=== PATIENT | female | born 1935 | race Caucasian/White ===

== ENCOUNTER 2020-06-22 13:39 | Emergency (ER) | payer BC, OTHER ==
[~2020-06-22] VITALS: Ht 162.6 cm; Wt 56.7 kg
[~2020-06-22 13:39] MED LIST: CAR3125T; CLOP75TA28; FURO1TAB31; GABA300C; GLIP5TAB12 PO; INSUPOW; LISI-646; SIMV-13; SITA100T7; WARF5TAB PO
[2020-06-22 15:28] VITALS: BP 134/77
== END 2020-06-22 16:18 | disposition home or self-care (01) ==
LOC: ER 13:39
DX: R07.81 Pleurodynia (principal); E11.9 Type 2 diabetes mellitus without complications; E78.5 Hyperlipidemia, unspecified; I10 Essential (primary) hypertension; Z90.49 Acquired absence of other specified parts of digestive tract; Z90.710 Acquired absence of both cervix and uterus; Z98.61 Coronary angioplasty status
CPT/HCPCS: 71101; 93005

== ENCOUNTER 2021-04-08 09:47 | Emergency (ER) | payer BC, OTHER ==
[~2021-04-08] VITALS: Ht 157.5 cm; Wt 59.0 kg
[~2021-04-08 09:47] MED LIST changes: -LISI-646; +LISI20TA28
[2021-04-08 10:44] LABS: Basophils # (auto) 0.1 10 ^3/uL (0-0.2); Eosinophils # (auto) 0.1 10 ^3/uL (0-0.8); Eosinophils % (auto) 1.1 % (0.0-7.0); Hematocrit 45.1 % (36.0-46.0); Hemoglobin 15.2 g/dL (12.2-16.2); Lymphocytes # (auto) 2.1 10 ^3/uL (0.4-5.4); Lymphocytes % (auto) 26.6 % (10.0-50.0); Mean Corpuscular Hemoglobin 29.1 pg (28.0-32.0); Mean Corpuscular Hgb Conc. 33.7 g/dL (32.0-36.0); Mean Corpuscular Volume 86.4 fL (80.0-100.0); Monocytes # (auto) 0.8 10 ^3/uL (0-1.3); Monocytes % (auto) 9.7 % (0.0-12.0); Neutrophils % (auto) 61.6 % (37.0-80.0); Nucleated Red Blood Cells % 0.1 %; Red Blood Cells 5.22 10^6/uL (4.0-5.20); Red Cell Distribution Width 14.9 % (11.8-14.3); White Blood Cell 8.1 10^3/uL (4.4-10.8)
[2021-04-08 11:06] LABS: Albumin 3.6 g/dL (3.4-5.0); Calcium 9.2 mg/dL (8.5-10.1); Magnesium 1.8 mg/dL (1.6-2.6); Potassium 3.8 mmol/L (3.5-5.1)
[2021-04-08 11:10] LABS: BUN/Creatinine Ratio 19.4; Bilirubin, Total 0.8 mg/dL (0.2-1.0); Total Protein 6.9 g/dL (6.4-8.2)
[2021-04-08] MEDS ORDERED: IOHEXOL 350 MG/ML 100ML IJ ONE (11:47)
[2021-04-08 12:43] LABS: INR 1.69 (0.9-1.15); Partial Thromboplastin Time 37.2 sec (23.6-33.0)
[2021-04-08 17:17] VITALS: BP 95/58
== END 2021-04-08 17:18 | disposition home or self-care (01) ==
LOC: ER 09:47
DX: I24.9 Acute ischemic heart disease, unspecified (principal); R79.1 Abnormal coagulation profile; I11.0 Hypertensive heart disease with heart failure; I50.9 Heart failure, unspecified; E11.9 Type 2 diabetes mellitus without complications; Z90.49 Acquired absence of other specified parts of digestive tract; Z90.710 Acquired absence of both cervix and uterus; Z88.5 Allergy status to narcotic agent
CPT/HCPCS: 36415; 71045; 71275; 80053; 83735; 84484; 85025; 85379; 85610; 85730; 93005; 99284; Q9967

== ENCOUNTER 2021-05-08 20:12 | Inpatient (IN) | payer OTHER ==
[~2021-05-08] VITALS: Ht 160 cm; Wt 54.4 kg
[2021-05-08] MEDS ORDERED: HYDROcodone-ACET 5/325MG TAB PO ONE (20:45)
[2021-05-08] MEDS ORDERED: ONDANSETRON HCL 4 MG/2 ML VIAL IV ONE (22:15)
[2021-05-08] MEDS ORDERED: MORPHINE SULFATE 4 MG/ML SYR/VIAL IV ONE (22:15)
[2021-05-09] MEDS ORDERED: fentaNYL CITRATE 100 MCG/2 ML VL IV ONE (00:45)
[2021-05-09] MEDS ORDERED: fentaNYL CITRATE 100 MCG/2 ML VL IV PRN (01:00)
[2021-05-09] MEDS ORDERED: HYDROcodone-ACET 7.5/325MG TAB PO PRN (01:00)
[2021-05-09 04:32] LABS: Basophils # (auto) 0 10 ^3/uL (0-0.2); Basophils % (auto) 0.4 % (0.0-2.0); Eosinophils # (auto) 0 10 ^3/uL (0-0.8); Eosinophils % (auto) 0.3 % (0.0-7.0); Hematocrit 39.9 % (36.0-46.0); Lymphocytes # (auto) 1.3 10 ^3/uL (0.4-5.4); Lymphocytes % (auto) 19.7 % (10.0-50.0); Mean Corpuscular Hemoglobin 28.4 pg (28.0-32.0); Mean Corpuscular Hgb Conc. 32.6 g/dL (32.0-36.0); Mean Corpuscular Volume 87.1 fL (80.0-100.0); Monocytes # (auto) 0.7 10 ^3/uL (0-1.3); Monocytes % (auto) 10.5 % (0.0-12.0); Neutrophils # (auto) 4.6 10 ^3/uL (1.6-8.6); Neutrophils % (auto) 69.1 % (37.0-80.0); Red Blood Cells 4.58 10^6/uL (4.0-5.20); Red Cell Distribution Width 15.1 % (11.8-14.3); White Blood Cell 6.7 10^3/uL (4.4-10.8)
[2021-05-09 04:37] LABS: Calcium 8.7 mg/dL (8.5-10.1); Potassium 4.2 mmol/L (3.5-5.1)
[2021-05-09 04:38] LABS: BUN/Creatinine Ratio 15.1
[2021-05-09 04:41] LABS: Total Protein 6.4 g/dL (6.4-8.2)
[2021-05-09] MEDS ORDERED: DOCUSATE SOD 100 MG CAP PO PRN (04:45)
[2021-05-09] MEDS ORDERED: NITROGLYCERIN 0.4 MG SL TAB SL PRN (04:45)
[2021-05-09] MEDS ORDERED: ACETAMINOPHEN 325 MG TAB PO PRN (04:45)
[2021-05-09] MEDS ORDERED: SODIUM CHLORIDE 0.9% 1,000 ML IV SCH (04:45)
[2021-05-09] MEDS ORDERED: MORPHINE SULFATE INJECTION 2 MG/ML SYRG IV PRN (04:45)
[2021-05-09] MEDS ORDERED: ONDANSETRON HCL 4 MG/2 ML VIAL IV PRN (04:45)
[2021-05-09] MEDS ORDERED: DEXTROSE (50%) 50ML SYRG IV PRN (04:45)
[2021-05-09 05:00] LABS: INR 1.08 (0.9-1.15); Partial Thromboplastin Time 25.4 sec (23.6-33.0)
[2021-05-09] MEDS: ACCU-CHEK COMFORT CURVE STRIP VI SCH ×3 (07:00→16:41)
[2021-05-09] MEDS: InsuLIN REG 1unit/0.01ml Soln (100units/ml) SC SCH ×3 (07:00→16:42)
[2021-05-09] MEDS ORDERED: ASCORBIC ACID 500 MG TAB PO SCH (10:00)
[2021-05-09] MEDS ORDERED: ZINC SULFATE 220mg CAP or TAB PO SCH (10:00)
[2021-05-09] MEDS ORDERED: ENOXAPARIN SOD 40 MG/0.4 ML SYRINGE SC SCH (10:00)
[2021-05-09] MEDS ORDERED: MULTIPLE VITAMIN TAB PO SCH (10:00)
[2021-05-09 12:30] VITALS: BP 122/64
[2021-05-09] MEDS ORDERED: HYDR-4069 PO (15:50)
[2021-05-09 17:18] VITALS: BP 129/64
[2021-05-09 17:30] VITALS: BP 129/64
== END 2021-05-09 18:25 | disposition home health service (06) | DRG 563 ==
LOC: EDUNIT# 20:12 → EDBD 20:12 → ER 20:17 → OVERFLOW 05-09 04:34 → CENTRAL 05-09 10:33
PROVIDERS: ADMIT Nurse Practitioner Family; ATTEND Nurse Practitioner Family
DX: S42.251A Displaced fracture of greater tuberosity of right humerus, initial encounter for closed fracture (principal); I11.0 Hypertensive heart disease with heart failure; E78.5 Hyperlipidemia, unspecified; E11.40 Type 2 diabetes mellitus with diabetic neuropathy, unspecified; W01.0XXA Fall on same level from slipping, tripping and stumbling without subsequent striking against object, initial encounter; I25.10 Atherosclerotic heart disease of native coronary artery without angina pectoris; Z20.822 Contact with and (suspected) exposure to COVID-19; I50.9 Heart failure, unspecified; Z90.710 Acquired absence of both cervix and uterus; Z90.49 Acquired absence of other specified parts of digestive tract; Y93.89 Activity, other specified; Y92.091 Bathroom in other non-institutional residence as the place of occurrence of the external cause; Y99.8 Other external cause status
CPT/HCPCS: 36415; 70450; 72125; 73030; 73200; 80053; 82962; 83036; 85025; 85610; 85730; 87426; 96361; 96372; 96374; 96375; 96376; G0378; J1815; J2405

== ENCOUNTER 2022-07-04 05:45 | Emergency (ER) | payer OTHER ==
[~2022-07-04] VITALS: Ht 160 cm; Wt 60.0 kg
[~2022-07-04 05:45] MED LIST changes: +HYDR-4069 PO
[2022-07-04 09:00] VITALS: BP 149/87
[2022-07-04] MEDS ORDERED: ALBUTEROL SULF 2.5 MG/0.5ML(0.5%) NEB SOLN NEB ONE (09:15)
[2022-07-04] MEDS ORDERED: cefTRIAXone SOD 1,000 MG VL IM ONE (10:15)
[2022-07-04] MEDS ORDERED: AZITTAB PO (10:16)
[2022-07-04] MEDS ORDERED: BENZ100C19 PO (10:17)
[2022-07-04] MEDS ORDERED: PRED15SO26 PO (10:17)
== END 2022-07-04 10:28 | disposition home or self-care (01) ==
LOC: EDBD 05:45 → ER 05:45
DX: R05.9 Cough, unspecified (principal); M79.662 Pain in left lower leg; I25.10 Atherosclerotic heart disease of native coronary artery without angina pectoris; I11.0 Hypertensive heart disease with heart failure; I50.9 Heart failure, unspecified; E11.9 Type 2 diabetes mellitus without complications; E78.5 Hyperlipidemia, unspecified; Z88.5 Allergy status to narcotic agent; Z90.49 Acquired absence of other specified parts of digestive tract; Z90.710 Acquired absence of both cervix and uterus; Z90.89 Acquired absence of other organs; Z98.890 Other specified postprocedural states; W18.00XA Striking against unspecified object with subsequent fall, initial encounter; Y93.89 Activity, other specified; Y92.89 Other specified places as the place of occurrence of the external cause; Y99.8 Other external cause status
CPT/HCPCS: 71045; 93005; 94640; 96372; 99283; J0696

== ENCOUNTER 2022-07-09 11:50 | Inpatient (IN) | payer OTHER ==
[~2022-07-09] VITALS: Ht 160 cm; Wt 49.5 kg
[~2022-07-09 11:50] MED LIST changes: +AZITTAB PO; +BENZ100C19 PO; +PRED15SO26 PO
[2022-07-09] MEDS ORDERED: ASPirin 325 MG TAB PO ONE (12:00)
[2022-07-09 12:54] LABS: Basophils # (auto) 0 10 ^3/uL (0-0.2); Basophils % (auto) 0.5 % (0.0-2.0); Eosinophils # (auto) 0 10 ^3/uL (0-0.8); Monocytes # (auto) 0.5 10 ^3/uL (0-1.3); Neutrophils # (auto) 5.8 10 ^3/uL (1.6-8.6)
[2022-07-09 12:56] LABS: Eosinophils % (auto) 0.2 % (0.0-7.0); Hematocrit 37.5 % (36.0-46.0); Hemoglobin 11.9 g/dL (12.2-16.2); Lymphocytes # (auto) 0.6 10 ^3/uL (0.4-5.4); Lymphocytes % (auto) 9.3 % (10.0-50.0); Mean Corpuscular Hemoglobin 26.6 pg (28.0-32.0); Mean Corpuscular Hgb Conc. 31.7 g/dL (32.0-36.0); Mean Corpuscular Volume 84.1 fL (80.0-100.0); Monocytes % (auto) 6.9 % (0.0-12.0); Neutrophils % (auto) 83.1 % (37.0-80.0); Nucleated Red Blood Cells % 0.1 %; Red Blood Cells 4.46 10^6/uL (4.0-5.20); Red Cell Distribution Width 17.7 % (11.8-14.3)
[2022-07-09 13:16] LABS: Albumin 3.1 g/dL (3.4-5.0); Calcium 8.6 mg/dL (8.5-10.1); Potassium 4.2 mmol/L (3.5-5.1)
[2022-07-09 13:20] LABS: BUN/Creatinine Ratio 18.3; Bilirubin, Total 1.1 mg/dL (0.2-1.0); Total Protein 6.3 g/dL (6.4-8.2)
[2022-07-09 14:08] LABS: Urine Bacteria NONE SEEN /hpf (None Seen); Urine Blood Negative /uL (Negative); Urine Specific Gravity 1.029 (1.001-1.035); Urine WBC 2 /hpf (0 - 5)
[2022-07-09] MEDS ORDERED: ENOXAPARIN SOD 60 MG/0.6 ML SYRINGE SC ONE (15:00)
[2022-07-09] MEDS ORDERED: MORPHINE SULFATE INJ 2 MG/ml SYRG IV PRN (15:15)
[2022-07-09] MEDS ORDERED: DEXTROSE (50%) 50ML SYRG IV PRN (15:15)
[2022-07-09] MEDS ORDERED: NITROGLYCERIN 0.4 MG SL TAB SL PRN (15:15)
[2022-07-09] MEDS ORDERED: ACETAMINOPHEN 325 MG TAB PO PRN (15:15)
[2022-07-09] MEDS: ACCU-CHEK COMFORT CURVE STRIP VI SCH ×2 (17:00→22:05)
[2022-07-09] MEDS: InsuLIN REG 1unit/0.01ml Soln (100units/ml) SC SCH ×2 (17:00→22:00)
[2022-07-09] MEDS ORDERED: ONDANSETRON HCL 4 MG/2 ML VIAL IV ONE (18:30)
[2022-07-10] MEDS ORDERED: METF-370 PO (00:15)
[2022-07-10] MEDS ORDERED: INSLANTI SC (00:15)
[2022-07-10] MEDS ORDERED: POTA10TA51 PO (00:15)
[2022-07-10] MEDS ORDERED: ASPI-498 OR (00:15)
[2022-07-10] MEDS: FUROSEMIDE 40 MG/4 ML VIAL IV SCH ×3 (03:52→18:47)
[2022-07-10 05:00] VITALS: BP 122/71
[2022-07-10] MEDS: ACCU-CHEK COMFORT CURVE STRIP VI SCH ×4 (06:53→21:13)
[2022-07-10] MEDS: InsuLIN REG 1unit/0.01ml Soln (100units/ml) SC SCH ×4 (06:56→21:13)
[2022-07-10 08:00] VITALS: BP 127/83
[2022-07-10] MEDS: ASPirin 81 mg TAB PO SCH (09:51)
[2022-07-10] MEDS: CARVEDILOL 3.125 MG TAB PO SCH ×2 (09:52→21:14)
[2022-07-10 12:00] VITALS: BP 99/66
[2022-07-10] MEDS ORDERED: FURO1TAB31 PO (15:27)
[2022-07-10 16:00] VITALS: BP 118/70
[2022-07-10 22:00] VITALS: BP 146/68
[2022-07-11 05:00] VITALS: BP 127/64
[2022-07-11] MEDS: ACCU-CHEK COMFORT CURVE STRIP VI SCH ×3 (06:03→17:00)
[2022-07-11] MEDS: InsuLIN REG 1unit/0.01ml Soln (100units/ml) SC SCH ×3 (06:04→17:00)
[2022-07-11] MEDS: FUROSEMIDE 40 MG/4 ML VIAL IV SCH ×2 (06:38→18:00)
[2022-07-11 08:00] VITALS: BP 138/66
[2022-07-11] MEDS: ASPirin 81 mg TAB PO SCH (09:54)
[2022-07-11] MEDS: CARVEDILOL 3.125 MG TAB PO SCH (09:55)
[2022-07-11 12:00] VITALS: BP 103/54
[2022-07-11 16:00] VITALS: BP 99/46
== END 2022-07-11 20:58 | disposition home health service (06) | DRG 280 ==
LOC: ER 11:58 → TELE 15:19 → TELE-EAST 22:29
PROVIDERS: ADMIT Internal Medicine; ATTEND Internal Medicine
DX: I21.4 Non-ST elevation (NSTEMI) myocardial infarction (principal); I50.23 Acute on chronic systolic (congestive) heart failure; I11.0 Hypertensive heart disease with heart failure; E11.9 Type 2 diabetes mellitus without complications; Z20.822 Contact with and (suspected) exposure to COVID-19; R79.89 Other specified abnormal findings of blood chemistry; E78.5 Hyperlipidemia, unspecified; Z90.710 Acquired absence of both cervix and uterus; Z95.810 Presence of automatic (implantable) cardiac defibrillator; Z90.89 Acquired absence of other organs; Z90.49 Acquired absence of other specified parts of digestive tract; Z80.3 Family history of malignant neoplasm of breast; Z80.49 Family history of malignant neoplasm of other genital organs; Z82.49 Family history of ischemic heart disease and other diseases of the circulatory system; Z79.4 Long term (current) use of insulin
CPT/HCPCS: 36415; 71045; 71275; 80053; 81001; 82962; 83880; 84484; 85025; 85379; 87426; 93005; 93306; 93970; 96372; G0378; J1815